=== PATIENT | female | born 1945 | race Caucasian/White ===

== ENCOUNTER 2024-10-03 18:27 | Inpatient (IN) | payer OTHER ==
[2024-10-03 19:56] LABS: Absolute Lymphocytes (CBC) 0.2 K/uL (0.7-4.9); Hematocrit 39.2 % (36.0-45.0); Hemoglobin 12.8 g/dL (12.0-15.0); MCH 29.0 pg (27.0-35.0); MCHC 32.6 g/dL (32.0-36.0); MCV 88.9 fL (80-100); MPV 7.2 fL (7.6-11.3); Nucleated RBC Absolute Count 0.0 (0-0); Nucleated Red Blood Cells % 0.2 % (0-0); RBC Red Blood Cell Count 4.41 M/uL (3.86-4.86); White Blood Count 3.50 thou/uL (4.3-10.9)
[2024-10-03 20:11] LABS: ALT/SGPT 26.0 U/L (13-56); AST/SGOT 32.0 U/L (15-37); Albumin 3.4 g/dL (3.4-5.0); Albumin/Globulin Ratio 0.8 (1.1-1.8); Alkaline Phosphatase 265.0 U/L (45-117); Anion Gap 11.9 mEq/L (5.0-15.0); BUN Blood Urea Nitrogen 75.0 mg/dL (7-18); Globulin 4.3 g/dL (2.3-3.5); Glucose Level 124.0 mg/dL (74-106); Lipase 32.0 U/L (13-75); Potassium 3.9 mEq/L (3.5-5.1)
--- NOTE | 2024-10-03 21:04 | RAD REPORT ---
EXAMINATION: CT ABDOMEN AND PELVIS WITHOUT CONTRAST CLINICAL INDICATION: Abdominal pain TECHNIQUE: CT abdomen and pelvis was performed, as per department protocol. IV contrast and oral was not administered.Axial, sagittal and coronal reconstructions were obtained. One or more of the following dose reduction techniques were used: Automated exposure control, adjustment of the mA and/o r kV according to the patient size, and/or iterative reconstruction. Unless otherwise specified, incidental findings do not require dedicated imaging follow-up. [id number]. COMPARISON: No prior exam. FINDINGS: The lack of intravenous and oral contrast limits evaluation of solid organs, vessels and bowel. 1.5 cm low-density area upper aspect of the spleen. Spleen measures 14 cm. Liver, pancreas, adrenals and left kidney grossly normal. Small right kidney. Large amount of stool present throughout the colon. No evidence of diverticulitis. Hysterectomy. No adnexal mass. Ventral hernia repair. A by femoral graft is present within the anterior subcutaneous fat of the pelvis. Right iliac stent p resent. Aorto biiliac stent. Diffuse edema within the subcutaneous tissues. No evidence of diverticulitis IMPRESSION: Large amount stool throughout the colon without obstruction Mild splenomegaly. 1.5 cm low-density area within the spleen. Represent a lesion or artifact. Nonemer gent splenic ultrasound recommended.
[2024-10-03] MEDS ORDERED: KETOROLAC 30 MG/ML INJ ONE (21:06)
[2024-10-03] MEDS ORDERED: LACTULOSE 20 GM/30 ML UCUP ONE (21:29)
--- NOTE | 2024-10-03 21:59 | EDPHYS ---
Physician Documentation [facility] Name: Flor Regan Age: 79 yrs Sex: Female : 1945 Arrival Date: 10/03/2024 Time: 18:27 Bed 16 Private MD: ED Physician Sherita Ramirez HPI: 10/03 18:53 This 79 yrs old Female presents to ER via Unassigned with complaints of Constipation. kb 18:53 Pt is a 79 year old female who presents for abd pain, low back pain and constipation kb that has been ongoing for one month. Pt was seen at [place] [facility] 3 times for this and was told she needed to follow up with GI. Pt was also told to take metamucil daily, but she hasn't been taking that so she hasn't been having bowel movements. Denies n/v, fever. . Historical: - Allergies: 18:59 Codeine; ap3 18:59 Latex, Natural Rubber; ap3 18:59 Adhesives; ap3 - PMHx: 18:59 Congestive heart failure; Atrial fibrillation; ap3 - PSHx: 18:59 pacemaker; ap3 - Immunization history:: Adult Immunizations up to date. - Infectious Disease History:: Denies. - Social history:: Smoking status: Patient reports the use of cigarette tobacco products, smokes one-half pack cigarettes per day. ROS: 18:56 Constitutional: As per HPI kb Exam: 18:56 Constitutional: This is a well developed, well nourished patient who is awake, alert, kb and in no acute distress. Head/Face: Normocephalic, atraumatic. ENT: Moist Mucous membranes Cardiovascular: Regular rate Respiratory: Respirations even and unlabored. No increased work of breathing. Talking in full sentences Skin: Warm, dry with normal turgor. Normal color. MS/ Extremity: Pulses equal, no cyanosis. Neurovascular intact. Full, normal range of motion. Neuro: Awake and alert, GCS 15, oriented to person, place, time, and situation. 18:56 Abdomen/GI: Inspection: distension, that is mild, in the right lower quadrant and left lower quadrant, Palpation: abdomen is soft and non-tender, 18:56 Back: CVA tenderness, that is moderate, is noted on the right, Vital Signs: 18:57 BP 135 / 54; Pulse 80; Resp 18; Temp 97.8; Pulse Ox 94% on R/A; Weight 58.06 kg; Height ap3 5 ft. 8 in. ; Pain 7/10; 19:30 BP 119 / 51; Pulse 79; Resp 18; Pulse Ox 100% ; kj2 20:30 BP 117 / 50; Pulse 76; Resp 18; Pulse Ox 100% on R/A; kj2 23:37 BP 118 / 52; Pulse 74; Resp 18; Temp 97.9; Pulse Ox 100% on R/A; kj2 18:57 Body Mass Index 19.46 (58.06 kg, 172.72 cm) ap3 18:57 Pain Scale: Adult ap3 MDM: 18:34 Medical Screening Exam initiated kb 21:56 Differential diagnosis: constipation, chronic pain, abnormal electrolytes, dehydration. kb Data reviewed: vital signs, nurses notes. Consideration of Admission/Observation Patient was admitted/placed on observation. Escalation of care including admission/observation considered. Management of patient was discussed with the following: Hospitalist: MICHELLE Guillermo accepts pt for admission under Dr Phillips. Historians other than the Patient: Family Member: Sister states pt lives alone, has been unable to care for herself, not eating and is losing weight. Request admission for social work professor consult for jail placement.. Counseling: I had a detailed discussion with the patient and/or guardian regarding the historical points, exam findings, and any diagnostic results supporting the discharge/admit diagnosis, lab results, radiology results, the need for further work-up and treatment in the hospital. 10/03 18:41 Order name: CBC with Diff; Complete Time: 22:18 kb 10/03 18:41 Order name: CMP; Complete Time: 20:13 kb 10/03 18:41 Order name: Lipase; Complete Time: 20:13 kb 10/03 18:41 Order name: UA Rfx Sonny Cult if indicated kb 10/03 22:14 Order name: CBC Smear Scan; Complete Time: 22:18 EDMS 10/03 23:27 Order name: CBC with Automated Diff EDMS 10/03 23:27 Order name: CBC with Automated Diff EDMS 10/03 23:27 Order name: CBC with Automated Diff EDMS 10/03 23:27 Order name: Comprehensive Metabolic Panel EDMS 10/03 23:27 Order name: Comprehensive Metabolic Panel EDOH 10/03 23:27 Order name: Comprehensive Metabolic Panel EDOH 10/03 20:29 Order name: Abdomen ; Complete Time: 21:05 EDOH 10/03 18:41 Order name: IV Saline Lock; Complete Time: 19:48 kb 10/03 18:41 Order name: Labs collected and sent; Complete Time: 19:48 kb Administered Medications: 21:16 Drug: Ketorolac IVP 15 mg IVP once Route: IVP; Site: left hand; kj2 23:34 Follow up: Response: No adverse reaction kj2 21:36 Drug: Lactulose PO 30 grams 45 ml PO once Volume: 45 ml; Route: PO; kj2 23:34 Follow up: Response: No adverse reaction kj2 Disposition Summary: 10/03/24 21:59 Hospitalization Ordered Notes: Hospitalization Status: Observation kb Provider: Prince christiano Gonzalez Location: Telemetry/MedSurg (observation) kb Condition: Stable kb Problem: new kb Symptoms: are unchanged kb Bed/Room Type: Standard Room Assignment: 407(10/03/24 23:29) rv1 Diagnosis - Weakness kb Forms: - Medication Reconciliation Form kb - SBAR form kb - Leadership Thank You Letter kb Signatures: Dispatcher [employer] EDKrystal Vivas, TRANSMITTER CHIEF-C TRANSMITTER CHIEF-Ckb Tyra Strong, RN RN ap3 Haley Del Cid rv1 Iwona Martin, RN RN kj2 Corrections: (The following items were deleted from the chart) 18:42 18:42 CBC+H.LAB.BRZ ordered. EDMS EDMS 18:42 18:42 COMPREHENSIVE METABOLIC PANEL+C.LAB.BRZ ordered. EDMS EDMS 18:42 18:42 LIPASE+C.LAB.BRZ ordered. EDMS EDMS 18:42 18:42 UA Rfx Sonny Cult if indicated+U.LAB.BRZ ordered. EDMS EDMS 18:42 18:42 Abdomen Pelvis W Con+CT.RAD.BRZ ordered. EDMS EDMS 19:00 18:59 Allergies: No Known Allergies; ap3 ap3 23:29 21:59 kb rv1
--- NOTE | 2024-10-03 21:59 | ER ---
Nurse's Notes [facility] Name: Flor Regan Age: 79 yrs Sex: Female : 1945 Arrival Date: 10/03/2024 Time: 18:27 Bed 16 Private MD: Diagnosis: Weakness Presentation: 10/03 18:57 Chief complaint: Patient states: she has a recent history of constipation, and is ap3 complaining of back pain and lower right abdominal pain. patient reports having minimal bowel movements daily. patient currently rates her pain as a 7/10 on the pain scale. Coronavirus screen: At this time, the client does not indicate any symptoms associated with coronavirus-19. Ebola Screen: No symptoms or risks identified at this time. Initial Sepsis Screen: Does the patient meet any 2 criteria? No. Patient's initial sepsis screen is negative. Does the patient have a suspected source of infection? No. Patient's initial sepsis screen is negative. Risk Assessment: Do you want to hurt yourself or someone else? Patient reports no desire to harm self or others. Onset of symptoms is unknown. 18:57 Method Of Arrival: Wheelchair ap3 18:57 Acuity: LILI 3 ap3 Triage Assessment: 19:01 General: Appears uncomfortable, Behavior is calm, cooperative, appropriate for age. ap3 Pain: Complains of pain in low back area and right lower quadrant. Neuro: Level of Consciousness is awake, alert, obeys commands, Oriented to person, place, time, situation. Cardiovascular: Patient's skin is warm and dry. Respiratory: Airway is patent Respiratory effort is even, unlabored, Respiratory pattern is regular, symmetrical. GI: Reports lower abdominal pain, constipation. Historical: - Allergies: 18:59 Codeine; ap3 18:59 Latex, Natural Rubber; ap3 18:59 Adhesives; ap3 - PMHx: 18:59 Congestive heart failure; Atrial fibrillation; ap3 - PSHx: 18:59 pacemaker; ap3 - Immunization history:: Adult Immunizations up to date. - Infectious Disease History:: Denies. - Social history:: Smoking status: Patient reports the use of cigarette tobacco products, smokes one-half pack cigarettes per day. Screenin:01 Abuse screen: Denies threats or abuse. Nutritional screening: No deficits noted. ap3 Tuberculosis screening: No symptoms or risk factors identified. 19:24 [facility] ED Fall Risk Assessment (Adult) History of falling in the last 3 months, kj2 including since admission No falls in past 3 months (0 pts) Confusion or Disorientation No (0 pts) Intoxicated or Sedated No (0 pts) Impaired Gait No (0 pts) Mobility Assist Device Used No (0 pt) Altered Elimination No (0 pt) Score/Fall Risk Level 0 - 2 = Low Risk Maintained a safe environment, Hourly rounding (assess needs \T\ fall precautionary measures) done. Assessment: 19:23 General: Appears in no apparent distress. Behavior is cooperative. Pain: Complains of kj2 pain in low back area and left lower quadrant and right lower quadrant Pain currently is 5 out of 10 on a pain scale. Neuro: Level of Consciousness is awake, alert, obeys commands, Oriented to person, place, time, situation. Cardiovascular: Patient's skin is warm and dry. Respiratory: Airway is patent Respiratory effort is unlabored. GI: No signs and/or symptoms were reported involving the gastrointestinal system. : No signs and/or symptoms were reported regarding the genitourinary system. 20:20 Reassessment: Patient appears in no apparent distress at this time. Patient and/or kj2 family updated on plan of care and expected duration. Pain level reassessed. Patient is alert, oriented x 3, equal unlabored respirations, skin warm/dry/pink. 20:20 Reassessment: patient refused catheter to obtain urine. kj2 20:20 Reassessment: patient refused catheter for urine sample, pure wick applied. kj2 21:20 Reassessment: Patient appears in no apparent distress at this time. Patient and/or kj2 family updated on plan of care and expected duration. Pain level reassessed. Patient is alert, oriented x 3, equal unlabored respirations, skin warm/dry/pink. 22:20 Reassessment: Patient appears in no apparent distress at this time. Patient and/or kj2 family updated on plan of care and expected duration. Pain level reassessed. Patient is alert, oriented x 3, equal unlabored respirations, skin warm/dry/pink. 23:30 Reassessment: Patient appears in no apparent distress at this time. Patient and/or kj2 family updated on plan of care and expected duration. Pain level reassessed. Patient is alert, oriented x 3, equal unlabored respirations, skin warm/dry/pink. Vital Signs: 18:57 BP 135 / 54; Pulse 80; Resp 18; Temp 97.8; Pulse Ox 94% on R/A; Weight 58.06 kg; Height ap3 5 ft. 8 in. ; Pain 7/10; 19:30 BP 119 / 51; Pulse 79; Resp 18; Pulse Ox 100% ; kj2 20:30 BP 117 / 50; Pulse 76; Resp 18; Pulse Ox 100% on R/A; kj2 23:37 BP 118 / 52; Pulse 74; Resp 18; Temp 97.9; Pulse Ox 100% on R/A; kj2 18:57 Body Mass Index 19.46 (58.06 kg, 172.72 cm) ap3 18:57 Pain Scale: Adult ap3 ED Course: 18:33 Patient arrived in ED. im 18:33 Krystal Bauman F[facility]-C [facility] kb 18:33 Sherita Ramirez MD is Attending Physician. kb 18:51 Radiology exam delayed due to lab results not completed at this time. (BUN/Creatinine) jc4 IV insertion attempt and/or patient not having appropriate IV at this time. 18:59 Triage completed. ap3 19:01 Arm band placed on left wrist. ap3 19:03 Iwona Martin, OCTAVIO is Primary Nurse. kj2 19:30 Patient has correct armband on for positive identification. Bed in low position. Call kj2 light in reach. Provided Education on: call light. 19:48 CBC with Diff Sent. hw 19:48 CMP Sent. hw 19:48 Lipase Sent. hw 19:48 Inserted saline lock: 22 gauge in left hand, using aseptic technique. Blood collected. br2 Flushed with 10 mL NS. 20:41 Abdomen In Process Unspecified. EDMS 21:58 Prince Gonzalez MD is Hospitalizing Provider. kb 10/04 00:05 Report given to OCTAVIO Rehman. kj2 Administered Medications: 10/03 21:16 Drug: Ketorolac IVP 15 mg IVP once Route: IVP; Site: left hand; kj2 23:34 Follow up: Response: No adverse reaction kj2 21:36 Drug: Lactulose PO 30 grams 45 ml PO once Volume: 45 ml; Route: PO; kj2 23:34 Follow up: Response: No adverse reaction kj2 Medication: 20:20 VIS not applicable for this client. kj2 Outcome: 21:59 Decision to Hospitalize by Provider. 10/04 00:43 Patient left the ED. kj2 Signatures: Dispatcher [employer] EDKrystal Vivas FNP-C FNP-Tyra Truong RN RN ap3 Evelia Lazcano Belinda RN RN br2 Juanjose Zendejas jc4 Iwona Martin RN RN kj2 Anna Méndez Corrections: (The following items were deleted from the chart) 10/03 19:00 18:59 Allergies: No Known Allergies; ap3 ap3
[2024-10-03 22:14] LABS: Blood Morphology Comment NOT SEEN (NOT SEEN); White Blood Cell Scan OK (OK)
--- NOTE | 2024-10-03 23:31 | P.HP ---
Certification for Inpatient Patient admitted to: Observation With expected LOS: <2 Midnights Patient will require the following post-hospital care: None Practitioner: I am a practitioner with admitting privileges, knowledge of patient current condition, hospital course, and medical plan of care. 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 Patient states prior to arrival at [facility] ER today, she went to [facility] in the morning complaining of right-sided back pain, lower abdominal pain, states she was evaluated treated and discharged home with prescription of tramadol and muscle relaxant. Patient states she went home and took the medications as prescribed but still had abdominal pain and right side lower back pain, which then prompted her to report to the ER. Patient had CT abdomen and pelvis without contrast done in ER, impression; (1) large amount stool throughout the colon without obstruction. Patient bowel sounds present all 4 quadrants, abdomen slightly distended, soft on palpation, no rebound tenderness. No sign of respiratory distress. Patient states she started having muscle spasm for the past 4 weeks with associated back pain, and abdominal pain, with no nausea or vomiting. She also states that her bilateral lower extremities edema is progressively worsening, and on admission assessment, patient bilateral lower extremities with 1+ pitting. Patient states she have made multiple visits to [facility] ER with abdominal pain and back pain, but always discharged home from the ER. Patient BUN 75, creatinine 1.74. Patient denies of any history of renal disease. No presenting signs or symptoms of CHF exacerbation at this time. - Past Medical/Surgical History Diabetic: No -: Hypercholesteremia. -: Essential hypertension. -: Muscle spasm. -: Abdominal pain. -: Pacemaker insertion. -: Leaky valve clip. -: Colonoscopy. -: Endoscopy. -: Left femoral bypass surgery. - Family History Mother -: Heart disease Brother -: Diabetes, Other (see notes) (Asthma, COPD.) Sister -: Cancer (Breast cancer.) - Social History Smoking Status: Current every day smoker Smoking therapy provided: Yes Patient receptive to therapy: No Alcohol use: No CD- Drugs: No Caffeine use: Yes Place of Residence: Custodial (Patient will benefit long-term care. Patient currently lives alone.) <EagleJuan - Last Filed: 10/05/24 02:38> Date of Service: 10/03/24 <Hilda Leiva - Last Filed: 10/05/24 09:35> Allergies codeine [Codeine] Allergy (Intermediate, Verified 09/14/11 00:55) [facility] Home Medications: Clopidogrel Bisulfate [Plavix] 75 mg PO DAILY 09/14/11 Cyclobenzaprine [Flexeril*] 10 mg PO Q6HP PRN 09/14/11 Enalapril Maleate 5 mg PO DAILY 09/14/11 Metoprolol Succinate 100 mg PO DAILY 09/14/11 Simvastatin 40 mg PO BEDTIME 09/14/11 Review of Systems 10-point ROS is otherwise unremarkable Gastrointestinal: Abdominal Pain Musculoskeletal: Back Pain <EagleJuan - Last Filed: 10/05/24 02:38> Physical Examination - Physical Exam General: Alert, Oriented x3, Cooperative HEENT: Atraumatic, Normocephalic, PERRLA, Mucous membr. moist/pink, Sclerae nonicteric Neck: Supple, 2+ carotid pulse no bruit, No LAD, Without JVD or thyroid abnormality Respiratory: Normal air movement, Other (No major adventitious breath sounds noted bilateral) Cardiovascular: No gallops, No rubs, No murmurs, Irregular heart rate/rhythm (Patient heart rate is regular to irregular.) Capillary refill: <2 Seconds Gastrointestinal: W/out hepatomegaly, No masses, No rebound, Tenderness, Guarding Musculoskeletal: No clubbing, No contractures, No warmth, Swelling (Bilateral lower extremities.), Tenderness (Bilateral lower extremities.) Integumentary: No breakdown, No erythema, No warmth, No cyanosis Neurological: Normal speech, Normal tone, Normal affect, Other (Unable to assess patient gait at this time she is in bed) Lymphatics: No axilla or inguinal lymphadenopathy - Studies Laboratory Data (last 24 hrs) 10/03/24 10/03/24 19:46 19:46 WBC 3.50 L Hgb 12.8 Hct 39.2 Plt Count 165 Sodium 134 L Potassium 3.9 BUN 75 H Creatinine 1.74 H Glucose 124 H Total Bilirubin 1.0 AST 32 ALT 26 Alkaline Phosphatase 265 H Lipase 32 <Juan Guillermo - Last Filed: 10/05/24 02:38> Female Exam - Breasts Breasts: Normal configuration <Juan Guillermo - Last Filed: 10/05/24 02:38> Assessment and Plan - Plan Patient is a 79-year-old female admitted with diagnosis of WILLIAMS, constipation, generalized body weakness with no associated chest pain, shortness of breath, positive 1+ pitting edema bilateral lower extremities. (1)Constipation. Patient CT abdomen/pelvis impression-large amount stool throughout the colon without obstruction. Patient received lactulose in with no positive results. -Order fleets enema x 2. First given on admission, second repeat after patient did not have adequate bowel movement. -Dulcolax suppository x 1. Patient laxatives needs to be optimized for positive results due to the profound nature of patient constipation.. -Fleets enema as needed. -Colace 100 mg p.o. twice daily. -Morphine 2 mg IV as needed every 6 hours. (2)WILLIAMS. Patient BUN 75, creatinine 1.74. Denies of any prior history of renal disease. -IV NS at 50 mL/ hr slow infusion due to patient history of CHF even though patient does not have any presenting symptoms CHF exacerbation. -Consult nephrology Dr. Vicente. -Daily weight and record. (3)DVT prophylaxis. -Heparin 5 units SQ every 8 hours. (3)Explained the entire treatment plan to the patient, solicit questions answered and voiced understanding. (4)Muscle spasm. -Flexeril 10 mg as needed twice daily. (5)Chronic CHF. No CHF exacerbation noted at this time. -Resume patient medications when reconciled. Discharge Plan: Other (Long-term care facility. Patient is okay for short-term long-term care facility placement) Plan to discharge in: Greater than 2 days - Advance Directives Does patient have a Living Will: No Does patient have a Durable POA for Healthcare: No - Code Status/Comfort Care Code Status Assessed: Yes Code Status: Full Code Critical Care: No Time Spent Managing Pts Care (In Minutes): 55 <EagleJuan - Last Filed: 10/05/24 02:38> - Problems (Diagnosis) (1) CKD (chronic kidney disease) stage 3, GFR 30-59 ml/min Current Visit: Yes Status: Acute (2) Atherosclerotic vascular disease Current Visit: Yes Status: Acute (3) Status post femorofemoral bypass surgery Current Visit: Yes Status: Acute (4) Cirrhosis Current Visit: Yes Status: Acute <Hilda Leiva - Last Filed: 10/05/24 09:35> Date of Service: 10/03/24 Patient was seen and examined. Events of the last 24 hours have been noted. Spoke with with ANTONIA regarding patient's clinical picture after evaluating and examining the patient independently. I performed a substantial part of the MDM during this patient's care today. I personally made or approved the documented management plan and acknowledge its risk of complications. I agree with the findings and documentation provided in the ANTONIA's notes. Patient's clinical symptoms are concerning for numerous medical issues including dilated cardiomyopathy with an EF of 35 to 40% along with a history of atherosclerotic vascular disease with peripheral arterial disease and coronary artery disease. Patient also with decreased vision and unable to really see for herself in a patient with chronic kidney disease stage IV. Patient will be gently hydrated and will monitor renal function closely. Do not want a volume overload patient so we will gently hydrate. Appreciate cardiology and nephrology consultation. Working on [place] [facility] facility placement. <Hilda Leiva - Last Filed: 10/05/24 09:35>
[2024-10-04] MEDS: HEPARIN 5000 UNIT/ML 1 ML VIAL SQ SCH (01:00)
[2024-10-04] MEDS: MORPHINE 2 MG/ML SYR IV PRN (01:00)
[2024-10-04] MEDS: ONDANSETRON 4 MG/2 ML VIAL IV PRN (01:15)
[2024-10-04] MEDS: MINERAL OIL ENEMA 135 ML BTL PR ONE (02:39)
[2024-10-04] MEDS: NA CHLORIDE 0.9% 1,000 ML IV SCH (02:39)
[2024-10-04 02:59] LABS: Urine Microscopic Reflex YN NO UMIC
[2024-10-04] MEDS: FENTANYL CITR 100 MCG/2 ML ONE (05:25)
[2024-10-04 06:06] LABS: Absolute Lymphocytes (CBC) 0.3 K/uL (0.7-4.9); Hematocrit 35.5 % (36.0-45.0); Hemoglobin 11.5 g/dL (12.0-15.0); MCH 29.2 pg (27.0-35.0); MCHC 32.5 g/dL (32.0-36.0); MCV 89.8 fL (80-100); MPV 7.5 fL (7.6-11.3); Nucleated RBC Absolute Count 0.0 (0-0); Nucleated Red Blood Cells % 0.0 % (0-0); RBC Red Blood Cell Count 3.95 M/uL (3.86-4.86); White Blood Count 7.30 thou/uL (4.3-10.9)
[2024-10-04 06:23] LABS: ALT/SGPT 23.0 U/L (13-56); AST/SGOT 28.0 U/L (15-37); Albumin 2.9 g/dL (3.4-5.0); Albumin/Globulin Ratio 0.8 (1.1-1.8); Alkaline Phosphatase 231.0 U/L (45-117); Anion Gap 8.8 mEq/L (5.0-15.0); BUN Blood Urea Nitrogen 79.0 mg/dL (7-18); Globulin 3.5 g/dL (2.3-3.5); Glucose Level 137.0 mg/dL (74-106); Potassium 3.8 mEq/L (3.5-5.1)
[2024-10-04] MEDS: BISACODYL 10 MG RECTAL SUPP PR ONE (06:45)
[2024-10-04] MEDS: DOCUSATE NA 100 MG CAP PO SCH (08:06)
--- NOTE | 2024-10-04 09:57 | P.CNS ---
Date of Consult: 10/04/24 Reason for Consult: WILLIAMS/ CKD Requesting Physician: Hilda Leiva Chief Complaint: Constipation History of Present Illness: 10/03 18:53 This 79 yrs old Female presents to ER via Unassigned with complaints of Constipation. kb 18:53 Pt is a 79 year old female who presents for abd pain, low back pain and constipation kb that has been ongoing for one month. Pt was seen at [facility] 3 times for this and was told she needed to follow up with GI. Pt was also told to take metamucil daily, but she hasn't been taking that so she hasn't been having bowel movements. Denies n/v, fever. . Allergies codeine [Codeine] Allergy (Intermediate, Verified 09/14/11 00:55) Hives Home medications list reviewed: Yes Home Medications: Clopidogrel Bisulfate [Plavix] 75 mg PO DAILY 09/14/11 Cyclobenzaprine [Flexeril*] 10 mg PO Q6HP PRN 09/14/11 Enalapril Maleate 5 mg PO DAILY 09/14/11 Metoprolol Succinate 100 mg PO DAILY 09/14/11 Simvastatin 40 mg PO BEDTIME 09/14/11 - Past Medical/Surgical History -: HTN -: HLD - Family History Mother Medical History: Heart disease Brother Medical History: Diabetes, Other (see notes) (Asthma, COPD.) Sister Medical History: Cancer (Breast cancer.) - Social History Smoking Status: Former smoker Alcohol use: Yes CD- Drugs: No Caffeine use: Yes Review of Systems 10-point ROS is otherwise unremarkable Cardiovascular: Edema Gastrointestinal: Constipation Musculoskeletal: Back Pain Physical Examination General: In no apparent distress, Oriented x3, Cooperative HEENT: Atraumatic Neck: Supple Respiratory: Clear to auscultation bilaterally, Normal air movement Cardiovascular: Regular rate/rhythm, Edema Gastrointestinal: No guarding, Distended Musculoskeletal: No clubbing, No contractures Integumentary: No rashes, No cyanosis Neurological: Normal speech Laboratory Data (last 24 hrs) 10/03/24 10/03/24 19:46 19:46 WBC 3.50 L Hgb 12.8 Hct 39.2 Plt Count 165 Sodium 134 L Potassium 3.9 BUN 75 H Creatinine 1.74 H Glucose 124 H Total Bilirubin 1.0 AST 32 ALT 26 Alkaline Phosphatase 265 H Lipase 32 Imagings Data: EXAMINATION: CT ABDOMEN AND PELVIS WITHOUT CONTRAST CLINICAL INDICATION: Abdominal pain TECHNIQUE: CT abdomen and pelvis was performed, as per department protocol. IV contrast and oral was not administered.Axial, sagittal and coronal reconstructions were obtained. One or more of the following dose reduction techniques were used: Automated exposure control, adjustment of the mA and/or kV according to the patient size, and/or iterative reconstruction. Unless otherwise specified, incidental findings do not require dedicated imaging follow-up. [id number]. COMPARISON: No prior exam. FINDINGS: The lack of intravenous and oral contrast limits evaluation of solid organs, vessels and bowel. 1.5 cm low-density area upper aspect of the spleen. Spleen measures 14 cm. Liver, pancreas, adrenals and left kidney grossly normal. Small right kidney. Large amount of stool present throughout the colon. No evidence of diverticulitis. Hysterectomy. No adnexal mass. Ventral hernia repair. A by femoral graft is present within the anterior subcutaneous fat of the pelvis. Right iliac stent present. Aorto biiliac stent. Diffuse edema within the subcutaneous tissues. No evidence of diverticulitis IMPRESSION: Large amount stool throughout the colon without obstruction Mild splenomegaly. 1.5 cm low-density area within the spleen. Represent a lesion or artifact. Nonemergent splenic ultrasound recommended. Conclusions/Impression: Stage I WILLIAMS likely multifactorial CKD IIIb -No NSAIDs Hyponatremia -Consider fluid restriction HTN with CKD/ CHF -Hold antihypertensives at this time Systolic Diastolic CHF, chronic Moderate Pulmonary HTN Moderate MR -Low sodium diet -DC IVF Anemia in chronic illness -Monitor H&H Gout -Monitor Uric Acid Slow Transit Constipation -Continue Colace -Mineral Oil Enema Hospitalist and ER notes reviewed Thank you kindly for the consultation Case reviewed with Dr. Leiva
--- NOTE | 2024-10-04 10:06 | P.PN ---
Subjective Date of Service: 10/04/24 Patient continues to have pain control. Patient's myalgia and worsening renal function. Patient unable to see. Patient's prognosis is not that day. Patient renal function is worsening. Patient cardiac functioning shows ejection fraction of 30 to 35%. Records from outside hospital and chart. At this time patient will continue with gentle hydration and physical therapy evaluation. Patient will need senior care facility placement. Review of Systems 10-point ROS is otherwise unremarkable Physical Examination - Vital Signs Temperature: 98 F Blood Pressure: 120/70 Pulse: 90 Respirations: 18 Pulse Ox (%): 95 - Physical Exam General: Alert, In no apparent distress, Oriented x3 HEENT: Atraumatic, PERRLA, EOMI Neck: Supple, JVD not distended Respiratory: Clear to auscultation bilaterally, Normal air movement Cardiovascular: Regular rate/rhythm, Normal S1 S2, No murmurs Gastrointestinal: Normal bowel sounds, Soft and benign, Non-distended, No tenderness Musculoskeletal: No clubbing, No swelling, No tenderness Integumentary: No rashes Neurological: Sensation intact, Cranial nerves 3-12 intact Lymphatics: No axilla or inguinal lymphadenopathy - Studies Laboratory Data (last 24 hrs) 10/03/24 10/03/24 19:46 19:46 WBC 3.50 L Hgb 12.8 Hct 39.2 Plt Count 165 Sodium 134 L Potassium 3.9 BUN 75 H Creatinine 1.74 H Glucose 124 H Total Bilirubin 1.0 AST 32 ALT 26 Alkaline Phosphatase 265 H Lipase 32 Medications List Reviewed: Yes Assessment & Plan - Problems (Diagnosis) (1) CKD (chronic kidney disease) stage 3, GFR 30-59 ml/min Current Visit: Yes Status: Acute (2) Atherosclerotic vascular disease Current Visit: Yes Status: Acute (3) Status post femorofemoral bypass surgery Current Visit: Yes Status: Acute (4) Cirrhosis Current Visit: Yes Status: Acute - Plan Plan: 1. Patient with generalized weakness and shortness of breath with acute CHF exacerbation; continue with gentle gently diuresing and monitor renal function closely. Patient with chronic kidney disease stage III and will need to make sure patient does not progress. Patient with a history of cirrhosis as well. Patient with multiple comorbidities and patient unable to see. She lives at home by herself but she is not safe to live at home by herself at this time. She is not able to really get out of bed well and will go to get physical therapy to start working with her. Will try to get senior care facility placement. Patient will be admitted for inpatient hospitalization. Discharge Plan: [facility] Plan to discharge in: Greater than 2 days - Advance Directives Does patient have a Living Will: No Does patient have a Durable POA for Healthcare: No - Code Status/Comfort Care Code Status Assessed: Yes Code Status: Full Code Critical Care: No Time Spent Managing PTS Care (In Minutes): 45 Date of Service: 10/04/24 Narrative & Impression DOS: 10/01/24 EXAM: CT LUMBAR SPINE WO CONTRAST HISTORY: Low back pain ongoing for 3 weeks. TECHNIQUE: Routine unenhanced CT of the lumbar spine was performed. Coronal and sagittal reformats were obtained. COMPARISON: X-ray lumbar spine 05/02/2022; CT abdomen pelvis 09/07/2024 FINDINGS: There are 5 non-rib bearing lumbar vertebrae. Mild dextrocurvature is noted. Normal lumbar lordosis is preserved. The vertebral bodies are normal in height and in normal alignment. No acute fracture or traumatic dislocation is visualized. Mild multilevel degenerative changes noted. Disc bulge noted at L3-L4, L4-L5, and most prominently at L5-S1. Perineural nerve sheath cyst is noted at L5-S1 on the left. Mild multilevel disc space narrowing, osteophyte formation and facet arthrosis. The visualized sacrum and pelvic bones are intact. Diffuse osteopenia is present. Partially visualized splenic hypodensity, better evaluated on recent CT abdomen pelvis dated 09/07/2024. Cholelithiasis. Atrophic right kidney. Postsurgical changes of the abdominal aorta with partially visualized right external iliac artery stent. IMPRESSION No acute fracture or traumatic subluxation of the lumbar spine. Osteopenia. Preliminary Report Dictated by Resident: Lily Quezada MD., have reviewed this study and agree with the above report. Narrative & Impression EXAM: CT ABDOMEN/PELVIS WITH CONTRAST HISTORY: Abdominal pain, acute, nonlocalized COMPARISON: CT scan dated 09/02/2024. TECHNIQUE AND FINDINGS: Contiguous axial imaging from the level of the lung bases through the proximal thighs was performed after the administration of intravenous Omnipaque contrast. Coronal and sagittal reconstructions were obtained. Auto mA and/or iterative reconstruction were used to reduce radiation dose. FINDINGS: LOWER THORAX: Mild bilateral pleural effusion with underlying atelectasis LIVER: No focal hepatic lesions. Normal contour. Minimal perihepatic free fluid. Mild fatty infiltration of the liver. There are multiple perisplenic, perigastric, gastric wall and peripancreatic varices of GALLBLADDER AND BILIARY TREE: Cholelithiasis without evidence of acute cholecystitis. SPLEEN: Moderate splenomegaly, measuring 163 mm. A hypodense focus is identified in spleen, measuring 17 x 20 mm, likely cyst. PANCREAS: Pancreas appears atrophic. ADRENAL GLANDS: Redemonstration of bulky nodular appearing left adrenal gland. Normal right adrenal gland. Redemonstration of a nodule measuring 8 x 7 mm in the left adrenal gland. KIDNEYS: Redemonstration of atrophic right kidney with multiple renal cortical cysts. A complex cyst at lower pole of right kidney measures 7 x 8 mm. Normal left kidney. GI TRACT: No dilation or wall thickening. Colonic diverticulosis without acute diverticulitis. Redemonstration of asymmetric thickening at anorectal region. PELVIS/BLADDER: Unremarkable. PERITONEUM AND RETROPERITONEUM: No free air or fluid. LYMPH NODES: No lymphadenopathy. VESSELS: There is redemonstration of atherosclerotic calcification of the abdominal aorta and its branches. Redemonstration of occlusion of the nikolai iliac arteries. A patent bypass graft is on the left, with an occluded stent on the right. The patent left-sided graft supplies a patent femoral-femoral bypass graft. BONES AND SOFT TISSUES: No suspicious lytic or sclerotic bony lesions. Redemonstration of anterior abdominal wall mesh. Diffuse body wall edema is noted. IMPRESSION 1. Mild fatty infiltration of liver with moderate splenomegaly with associated perigastric and peripancreatic varices and mild perihepatic fluid. Cholelithiasis. 2. Redemonstration of atrophic right kidney with multiple cysts and small complex cyst. Unchanged asymmetric anorectal wall thickening and diverticulosis without acute diverticulitis. 3. Patent left-sided and femoral-femoral bypass grafts; occluded nikolai iliac arteries and right stent, unchanged. Four-chamber cardiac dilatation. Interstitial pulmonary edema. Small bilateral pleural effusions. Preliminary Report Dictated by Resident: Jhoan Biswas MD., have reviewed this study and agree with the above report. Exam Ended:04/12/24 Procedure Performed: PHILLIP with Abott's mitral clip, XAVIER,Trans septal puncture, Physicians: and ,this was performed by both physicians General anesthesia was provided by Anesthesia team.Christiano Templeton XAVIER was performed by Dr.Shuja Adkins After induction of general anesthesia by Anesthesia team and XAVIER evaluation of mitral valve by our noninvasive team we obtained 8F access on the right side. A pre close was performed for the right groin access. Next, we performed transeptal puncture using Andrei Vers[place] Cross under fluoroscopic and XAVIER guidance and sheath was placed in the left upper pulmonary vein. We gave heparin and kept the ACT close to 300 sec. Next, we exchanged the trans-septal sheath with Moe's 22 Fr sheath and placed in the left atrium. Next , we passed Clip catheter trough the sheath into the left atrium.The transseptal puncture and inserted the delivery catheter by . Next under fluroscopic and XAVIER guidance the clip was positioned above the valve and next into the LV below the leaflets. Next the clip in opened position was moved up and rotated to grasp the leaflets. Intial grasp lead to the shift of MR laterally with mitral gradient of 8 mm Hg. Hence we decided to let go and repositioned the clip and grasp. After moving the clip laterally and with the road production general manager the mitral jet got better and hence we decided to let go. MR reduced but still was moderate .Since the mitral gradient was high we decided not to put the second clip. The clip was successfully deployed. The V wave was 54 and reduced to 39 after clip. Mean left atrial pressure reduced from 29 to 27 mm Hg. Mitral valve gradient increased from 4 to 7 mm Hg. Next The access sheath was removed and preclose suture was closed and hemostasis was obtained. Final XAVIER showed device insitu and no pericardial effusion. Next, patient was extubated and transferred to recovery in stable condition. Impression Successful PHILLIP using Abotts XTW mitral clip Plans Start Eliquis from tomorrow Ancef 1gm tonight and tomorrow morning C/w Other meds including diuretics Germán Martines MD, [facility] eastern philosophy professor cook specialty 06/21/24 Left Ventricle Left ventricle is mildly dilated. Moderate global hypokinesis present. Moderately reduced systolic function with a visually estimated EF of 35 - 40%. Unable to assess diastolic function due to mitral valve disease. Right Ventricle Right ventricle is mildly dilated. Normal systolic function. There is a pacemaker lead in the right ventricle. Left Atrium Left atrium is severely dilated. Right Atrium Right atrium size is normal. Lead present in the right atrium. IVC/SVC IVC diameter is greater than 21 mm and decreases less than 50% during inspiration; therefore the estimated right atrial pressure is elevated (~15 mmHg). Mitral Valve S/p Mitral clip Difficult to assess MR severity but probably moderate. Mean mitral valve gradient is 9.7 mmHG at heart rate 80 bpm. Consider XAVIER or CMR for accurate assessment of MR severity if clinically indicated. Tricuspid Valve Tricuspid valve structure is normal. Mild transvalvular regurgitation. Reversed hepatic vein systolic flow. Right ventricular systolic pressure is 55-60 mmHg. No stenosis. Aortic Valve Tricuspid. Moderately thickened cusps. Moderately calcified cusps. Trace transvalvular regurgitation. Consistent with moderate aortic stenosis. AV mean gradient is 12.2 mmHg. AV peak velocity is 234.5 cm/s. AV area by continuity VTI is 1.0 cm2. LVOT 2.0 cm. SVI 35 ml/m2. Pulmonic Valve Valve structure is normal. Mild transvalvular regurgitation. No stenosis. Ascending Aorta Normal sized annulus and sinus of Valsalva. Pericardium No pericardial effusion. Interpretation Summary LeftVentricle: Left ventricle is mildly dilated. Moderate global hypokinesis present. Moderately reduced systolic function with a visually estimated EF of 35 - 40%. Unable to assess diastolic function due to mitral valve disease. RightVentricle: Right ventricle is mildly dilated. Normal systolic function. TricuspidValve: Mild transvalvular regurgitation. Reversed hepatic vein s ystolic flow. Right ventricular systolic pressure is 55-60 mmHg. LeftAtrium: Left atrium is severely dilated. AorticValve: Tricuspid. Moderately thickened cusps. Moderately calcified cusps. Trace transvalvular regurgitation. Consistent with moderate aortic stenosis. AV mean gradient is 12.2 mmHg. AV peak velocity is 234.5 cm/s. AV area by continuity VTI is 1.0 cm2. LVOT 2.0 cm. SVI 35 ml/m2. MitralValve: S/p Mitral clip Difficult to assess MR severity but probably moderate. Mean mitral valve gradient is 9.7 mmHG at heart rate 80 bpm. Consider XAVIER or CMR for accurate assessment of MR severity if clinically indicated. IVC/SVC: IVC diameter is greater than 21 mm and decreases less than 50% during inspiration; therefore the estimated right atrial pressure is elevated (~15 mmHg). Pepper Hi MD Addendum Expand AllCollapse All Consultation requested by: IM/Hospitalist, Dr. 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 HF meds/adjusted during hospitalization since she failed OP loop diuretic escalation and she tolerated changes well but had been clearly counseled on the need for close OP monitoring but when my office staff called her within a week of discharge, pt wanted to hold off on f/u until seeing PCP and it appears no labs were checked until earlier today and given multiple abnormal findings, she was referred to the ER. She has been hypotensive since admission but largely asymptomatic. PAST MEDICAL HISTORY Past Medical History Past Medical History: Diagnosis Date ? Allergic rhinitis ? Atrial fibrillation ? Carotid artery disease s/p stent ? Gout, unspecified ? Hypercholesterolemia ? Hypertension ? Macular degeneration of both eyes ? PVD (peripheral vascular disease) s/p femoral stents ? Stroke ? Transfusion history Past Surgical History Past Surgical History: Procedure Laterality Date ? ANGIOPLASTY Right 04/04/2019 Surgeon: Jimmy Squires Jr., MD; Location: [facility] Location ? ARTERIOGRAM Right 04/04/2019 Surgeon: Jimmy Squires Jr., MD; Location: [facility] ? ARTERIOGRAM Right 04/06/2019 Surgeon: Jimmy Squires Jr., MD; Location: [facility] ? CREATION BYPASS GRAFT FEMORAL ARTERY (SHX) Right 04/06/2019 Surgeon: Jimmy Squires Jr., MD; Location[facility] Location ? ESOPHAGOGASTRODUODENOSCOPY N/A 01/17/2024 Surgeon: Divine Hernandez MD; Location[facility] ? EXPLORATION VESSEL LOWER EXTREMITY (SHX) Right 04/06/2019 Surgeon: Jimmy Squires Jr., MD; Location: [facility] Location ? FEMORAL-FEMORAL BYPASS GRAFT Bilateral 08/15/2022 Surgeon: Basilio Mari MD; Location: [facility] ? HYSTERECTOMY partial hysterectomy ? OPEN REDUCTION PERCUTANEOUS PINNING Left 08/09/2015 Surgeon: Joon Law; Location: [facility] Location ? OTHER carotid stent and ?stents for pad ? RADIUS ORIF Right 08/09/2015 Surgeon: Joon Law; Location: [facility] Location ? SPLINT APPLICATION Right 08/09/2015 Surgeon: Joon Law; Location: [facility] Location ? VASCULAR STENTING Right 04/04/2019 Surgeon: Jimmy Squires Jr., MD; Location: [facility] Location Family Hx Family History Problem Relation Age of Onset ? Heart Mother ? Hypertension Mother ? Diabetes Father ? Breast Cancer Sister ? Asthma Sister ? Cancer Sister ? Thyroid Cancer Maternal Aunt ? Non-contributory Other Allergies: Adhesive, Codeine, and Latex MEDICATIONS Current Medications Current Facility-Administered Medications: ? Lidocaine (LIDOCARE) 4 % patch 1 Patch, 1 Patch, Topical, ONCE, Nidia Mccarthy MD, 1 Patch at 06/20/24 1546 ? midodrine (PROAMATINE) tablet 10 mg, 10 mg, Oral, TID, Bob Hamm MD ? midodrine (PROAMATINE) tablet 5 mg, 5 mg, Oral, ONCE, Bob Hamm MD ? NaCl 0.9% (NS) bolus infusion 250 mL, 250 mL, IV Piggyback, ONCE, Rory Shepherd MD ? NaCl 0.9% (NS) IV infusion 1,000 mL, 1,000 mL, IV Infusion, CONTINUOUS, Rory Shepherd MD SOCIAL HISTORY Tobacco Use History Social History Tobacco Use Smoking Status Former ? Types: Cigarettes ? Passive exposure: Past Smokeless Tobacco Former Tobacco Comments patient smokes about 5 cig when she does smoke Social History Substance and Sexual Activity Alcohol Use Not Currently Comment: rarely Social History Substance and Sexual Activity Drug Use Not Currently REVIEW OF SYSTEMS ROS: Constitutional: No fevers or chills reported Vision: Vision impairment ENT: No sinusitis or dysphagia reported Resp: Dyspnea, O2 requirements CVS: As mentioned above GI: No N/V/D : Abnormal UA Heme: Anemia noted, chronic, other cytopenias Endo: No DM or thyroid issues reported Neuro: No hx of CVA or seizures Psych: No reports of depression or anxiety Derm: No reports of rashes or ulcers PHYSICAL EXAMINATION Vitals: 06/20/24 1709 BP: (!) 81/34 Pulse: 80 Resp: 20 Temp: SpO2: 99% Gen: NAD, non tachypnec, thin/frail HEENT: Atraumatic, sclera anicteric, visual impairment Neck: Supple, Resp: b/l air entry, no rales CVS: Non tachy, cardiac murmur GI: Soft, NT : ortiz not present Ext: No LE edema noted, shins non tender Derm: No rashes Neuro: Awake, alert, responsive, non encephalopathic, non focal LABORATORY Reviewed in the EMR CHART REVIEW: Performed ASSESSMENT and PLAN 1. Stage III ARF episode (Cr level nearly 3 folds higher than last check in May), latest after prior recurrent Stage I WILLIAMS episodes in past months on underlying CKD NOS now currently due to hypovolemia and hypotension in the setting of her HF regimen and prev felt to be 2nd to Type 1 CRS in the setting of her cardiomyopathy and valvular heart disease +/- other. Solitary kidney state with prior renal imaging revealing some Rt renal atrophy 2. Hypotension 2nd to hypovolemia and meds, asymptomatic, s/p 1L IVF bolus, order additional [address] on NS 50 cc IVF. Hold all BP lowering agents 3. Severe azotemia in the setting of above without uremia, will cont to trend closely with hydration. Cont IVF, no emergent plans for LOFT PATTERNMAKER currently 4. Hyperkalemia in the setting of above -initial OP lab check must have had some hemolysis as repeat level in the ER lower, recheck level sent off, cont IVF for distal tubular Na deliver and K excretion 5. Acute on chronic hyponatremia with hypovolemic component currently -cont isotonic IVF, holding all diuretics 6. Chronic combined systolic + diastolic CHF, mod pulm HTN, MR (non rheumatic), complicated history, hx of recurrent admissions and fluid overload in early May which prompted attempts to place her on GDMT and she demonstrated good response to regimen prior to discharge but unfortunately pt did not f/u in clinic with us. Will have to re-assess HF regimen with Cardiology team on discharge Rory Shepherd MD, FASN Study quality experienced technical difficulty. A complete echocardiogram was performed using 2D, color flow Doppler and spectral Doppler. 3 mL of Optison ultrasound enhancing agent used. Findings Left Ventricle Left ventricle is mildly dilated. Moderate global hypokinesis present. Moderately reduced systolic function with a visually estimated EF of 35 - 40%. Unable to assess diastolic function due to mitral valve disease. Right Ventricle Right ventricle is mildly dilated. Normal systolic function. There is a pacemaker lead in the right ventricle. Left Atrium Left atrium is severely dilated. Right Atrium Right atrium size is normal. Lead present in the right atrium. IVC/SVC IVC diameter is greater than 21 mm and decreases less than 50% during inspiration; therefore the estimated right atrial pressure is elevated (~15 mmHg). Mitral Valve S/p Mitral clip Difficult to assess MR severity but probably moderate. Mean mitral valve gradient is 9.7 mmHG at heart rate 80 bpm. Consider XAVIER or CMR for accurate assessment of MR severity if clinically indicated. Tricuspid Valve Tricuspid valve structure is normal. Mild transvalvular regurgitation. Reversed hepatic vein systolic flow. Right ventricular systolic pressure is 55-60 mmHg. No stenosis. Aortic Valve Tricuspid. Moderately thickened cusps. Moderately calcified cusps. Trace transvalvular regurgitation. Consistent with moderate aortic stenosis. AV mean gradient is 12.2 mmHg. AV peak velocity is 234.5 cm/s. AV area by continuity VTI is 1.0 cm2. LVOT 2.0 cm. SVI 35 ml/m2. Pulmonic Valve Valve structure is normal. Mild transvalvular regurgitation. No stenosis. Ascending Aorta Normal sized annulus and sinus of Valsalva. Pericardium No pericardial effusion. Interpretation Summary ? LeftVentricle: Left ventricle is mildly dilated. Moderate global hypokinesis present. Moderately reduced systolic function with a visually estimated EF of 35 - 40%. Unable to assess diastolic function due to mitral valve disease. ? RightVentricle: Right ventricle is mildly dilated. Normal systolic function. ? TricuspidValve: Mild transvalvular regurgitation. Reversed hepatic vein systolic flow. Right ventricular systolic pressure is 55-60 mmHg. ? LeftAtrium: Left atrium is severely dilated. ? AorticValve: Tricuspid. Moderately thickened cusps. Moderately calcified cusps. Trace transvalvular regurgitation. Consistent with moderate aortic stenosis. AV mean gradient is 12.2 mmHg. AV peak velocity is 234.5 cm/s. AV area by continuity VTI is 1.0 cm2. LVOT 2.0 cm. SVI 35 ml/m2. ? MitralValve: S/p Mitral clip Difficult to assess MR severity but probably moderate. Mean mitral valve gradient is 9.7 mmHG at heart rate 80 bpm. Consider XAVIER or CMR for accurate assessment of MR severity if clinically indicated. ? IVC/SVC: IVC diameter is greater than 21 mm and decreases less than 50% during inspiration; therefore the estimated right atrial pressure is elevated (~15 mmHg). Pepper Hi MD 06/21/24
[2024-10-04] MEDS: NA CHLORIDE 0.9% 250 ML IV ONE (10:27)
[2024-10-04] MEDS: MINERAL OIL ENEMA 135 ML BTL PR PRN (15:52)
[2024-10-04] MEDS: CYCLOBENZAPRINE 10 MG TAB PO PRN (18:19)
[2024-10-05] MEDS: BISACODYL 10 MG RECTAL SUPP PR ONE (04:20)
[2024-10-05 04:44] LABS: Sqamous Epithelial None Seen /HPF (None Seen); Urine Micro Reflex YN NO BILL MICROSCOPIC
[2024-10-05 04:52] LABS: Absolute Lymphocytes (CBC) 0.3 K/uL (0.7-4.9); Hematocrit 34.8 % (36.0-45.0); Hemoglobin 11.6 g/dL (12.0-15.0); MCH 29.6 pg (27.0-35.0); MCHC 33.4 g/dL (32.0-36.0); MCV 88.5 fL (80-100); MPV 7.4 fL (7.6-11.3); Nucleated RBC Absolute Count 0.0 (0-0); Nucleated Red Blood Cells % 0.1 % (0-0); RBC Red Blood Cell Count 3.93 M/uL (3.86-4.86); White Blood Count 4.40 thou/uL (4.3-10.9)
[2024-10-05 05:01] LABS: ALT/SGPT 25.0 U/L (13-56); AST/SGOT 35.0 U/L (15-37); Albumin 2.8 g/dL (3.4-5.0); Albumin/Globulin Ratio 0.8 (1.1-1.8); Alkaline Phosphatase 233.0 U/L (45-117); Anion Gap 6.4 mEq/L (5.0-15.0); BUN Blood Urea Nitrogen 84.0 mg/dL (7-18); Globulin 3.5 g/dL (2.3-3.5); Glucose Level 96.0 mg/dL (74-106); Magnesium 2.7 mg/dL (1.6-2.4); NT PRO-BNP 18162.0 pg/mL (<450); Potassium 4.4 mEq/L (3.5-5.1); Uric Acid 8.7 mg/dL (2.6-6.0)
[2024-10-05 05:15] LABS: MA/CREAT RATIO ND (< 30.0); UR CREAT 48.0 mg/dL (20-320); UR MICROALBUMIN < 0.5 mg/dL (< 1.9); UR PROTEIN 11.0 mg/dL (<11.9)
[2024-10-05] MEDS: DOCUSATE NA 100 MG CAP PO SCH (07:52)
--- NOTE | 2024-10-05 09:34 | P.PN ---
Date of Service: 10/05/24 Subjective Patient is clinically doing better. Patient clinical symptoms are improving. Continue working with physical therapy. Patient with generalized weakness and requiring a lot of verbal cues. Patient will will benefit from halfway facility placement. Physical Examination - Vital Signs Reviewed - Physical Exam General: Alert, In no apparent distress, Oriented x2-3 Respiratory: Clear to auscultation bilaterally, Normal air movement Cardiovascular: Regular rate/rhythm, Normal S1 S2, No murmurs Gastrointestinal: Normal bowel sounds, Soft and benign, Non-distended, No tenderness Musculoskeletal: No clubbing, No swelling, No tenderness Integumentary: No rashes Neurological: No focal deficits Assessment & Plan - Problems (Diagnosis) (1) CKD (chronic kidney disease) stage 3, GFR 30-59 ml/min Current Visit: Yes Status: Acute (2) Atherosclerotic vascular disease Current Visit: Yes Status: Acute (3) Status post femorofemoral bypass surgery Current Visit: Yes Status: Acute (4) Cirrhosis Current Visit: Yes Status: Acute - Plan Continue with plan of care as mentioned below: 1. Patient with generalized weakness with shortness of breath and acute CHF exacerbation; continue with diuresing. Continue monitoring renal function while we diurese the patient. Patient is recent echocardiogram with an EF of 35 to 40%. Continue with cardiac meds and outpatient cardiology follow-up. Will consult cardiology for further evaluation. Patient with atherosclerotic disease in dilated cardiomyopathy. 2. Chronic kidney disease stage III; renal function better today. Continue diuresing and monitoring renal function closely. Appreciate nephrology input 3. Patient with atherosclerotic vascular disease; patient with history of femorofemoral bypass surgery and patient with multiple areas of atherosclerotic lesions diffusely. Patient also with ischemic cardiomyopathy. Patient will continue with antiplatelet therapy and statin therapy. No aggressive intervention at this time 4. Patient with history of cirrhosis with gastric varices. Will continue monitoring LFTs and supportive care. Continue with Lasix and Aldactone 5. GI DVT prophylaxis Discharge Plan: [facility] Plan to discharge in: Greater than 2 days - Advance Directives Does patient have a Living Will: No Does patient have a Durable POA for Healthcare: No - Code Status/Comfort Care Code Status Assessed: Yes Code Status: Full Code Critical Care: No Time Spent Managing PTS Care (In Minutes): 35
--- NOTE | 2024-10-05 10:02 | P.PN ---
Date of Service: 10/05/24 Vital Signs Temp Pulse Resp BP Pulse Ox 98 F 90 18 120/70 95 10/05/24 09:30 10/05/24 09:30 10/05/24 09:30 10/05/24 09:30 10/05/24 09:30 Medications Acetaminophen (Acetaminophen 325 Mg Tablet) 650 mg PO Q4HP PRN PRN Reason: Pain scale 2-4 (Mild) Bisacodyl (Bisacodyl 10 Mg Rectal Supp) 10 mg OR DAILY PRN PRN Reason: CONSTIPATION Cyclobenzaprine HCl (Cyclobenzaprine 10 Mg Tab) 10 mg PO BIDP PRN PRN Reason: MUSCLE SPASMS Last Admin: 10/04/24 18:19 Dose: 10 mg Docusate Sodium (Docusate Na 100 Mg Cap) 100 mg PO QID TA Last Admin: 10/05/24 07:52 Dose: 100 mg Heparin Sodium (Porcine) (Heparin 5000 Unit/Ml 1 Ml Vial) 5,000 unit SQ Q8HR TA Last Admin: 10/05/24 07:52 Dose: 5,000 unit Mineral Oil (Mineral Oil Enema 135 Ml Btl) 133 ml OR DAILY PRN PRN Reason: CONSTIPATION Last Admin: 10/04/24 15:52 Dose: 133 ml Morphine Sulfate (Morphine 2 Mg/Ml Syr) 2 mg IV Q6H PRN PRN Reason: Pain scale 8-10 (Severe) Last Admin: 10/05/24 07:53 Dose: 2 mg Ondansetron HCl (Ondansetron 4 Mg/2 Ml Vial) 4 mg IV Q6HP PRN PRN Reason: NAUSEA / VOMITING Last Admin: 10/04/24 01:15 Dose: 4 mg Assessment/ Plan: Nephrology Progress Note No Dyspnea No Chest Pain No Acute Events Overnight Diffuse persistent pain worse with movement Vital Signs, Medications, Blood Work, and Imaging reviewed in the chart General: In no apparent distress, Oriented x3, Cooperative HEENT: Atraumatic Neck: Supple Respiratory: Clear to auscultation bilaterally, Normal air movement Cardiovascular: Regular rate/rhythm, Edema Gastrointestinal: No guarding, Distended Musculoskeletal: No clubbing, No contractures Integumentary: No rashes, No cyanosis Neurological: Normal speech Laboratory Data (last 24 hrs) 10/03/24 10/03/24 19:46 19:46 WBC 3.50 L Hgb 12.8 Hct 39.2 Plt Count 165 Sodium 134 L Potassium 3.9 BUN 75 H Creatinine 1.74 H Glucose 124 H Total Bilirubin 1.0 AST 32 ALT 26 Alkaline Phosphatase 265 H Lipase 32 Imagings Data: EXAMINATION: CT ABDOMEN AND PELVIS WITHOUT CONTRAST CLINICAL INDICATION: Abdominal pain TECHNIQUE: CT abdomen and pelvis was performed, as per department protocol. IV contrast and oral was not administered.Axial, sagittal and coronal reconstructions were obtained. One or more of the following dose reduction techniques were used: Automated exposure control, adjustment of the mA and/or kV according to the patient size, and/or iterative reconstruction. Unless otherwise specified, incidental findings do not require dedicated imaging follow-up. [id number]. COMPARISON: No prior exam. FINDINGS: The lack of intravenous and oral contrast limits evaluation of solid organs, vessels and bowel. 1.5 cm low-density area upper aspect of the spleen. Spleen measures 14 cm. Liver, pancreas, adrenals and left kidney grossly normal. Small right kidney. Large amount of stool present throughout the colon. No evidence of diverticulitis. Hysterectomy. No adnexal mass. Ventral hernia repair. A by femoral graft is present within the anterior subcutaneous fat of the pelvis. Right iliac stent present. Aorto biiliac stent. Diffuse edema within the subcutaneous tissues. No evidence of diverticulitis IMPRESSION: Large amount stool throughout the colon without obstruction Mild splenomegaly. 1.5 cm low-density area within the spleen. Represent a lesion or artifact. Nonemergent splenic ultrasound recommended. Conclusions/Impression: Stage I WILLIAMS likely multifactorial CKD IIIb -No NSAIDs Hyponatremia -Improved HTN with CKD/ CHF -Hold antihypertensives at this time Systolic Diastolic CHF, chronic Moderate Pulmonary HTN Moderate MR -Low sodium diet Hypoalbuminemia -Start Nepro Anemia in chronic illness -Monitor H&H Gout -Monitor Uric Acid Slow Transit Constipation -Continue Colace -Mineral Oil Enema prn Hospitalist note reviewed
[2024-10-05] MEDS: NEPRO SHAKE 237 ML CAN PO SCH (14:14)
[2024-10-05] MEDS: ACETAMINOPHEN 325 MG TABLET PO PRN (22:07)
[2024-10-06 00:02] VITALS: BMI 18.7
[2024-10-06 05:24] LABS: Calcium Oxalate Crystals- Ur Few /HPF (None Seen); Sqamous Epithelial None Seen /HPF (None Seen); Urine Micro Reflex YN NO BILL MICROSCOPIC
[2024-10-06 05:43] LABS: MA/CREAT RATIO 69.8 (< 30.0); UR CREAT 53.0 mg/dL (20-320); UR MICROALBUMIN 3.7 mg/dL (< 1.9); UR PROTEIN 20.3 mg/dL (<11.9)
[2024-10-06 12:07] LABS: Absolute Lymphocytes (CBC) 0.4 K/uL (0.7-4.9); Hematocrit 36.7 % (36.0-45.0); Hemoglobin 11.7 g/dL (12.0-15.0); MCH 28.8 pg (27.0-35.0); MCHC 32.0 g/dL (32.0-36.0); MCV 90.1 fL (80-100); MPV 7.3 fL (7.6-11.3); Nucleated RBC Absolute Count 0.0 (0-0); Nucleated Red Blood Cells % 0.1 % (0-0); Percent Reticulocyte Count 2.21 % (0.4-2.05); RBC Red Blood Cell Count 4.07 M/uL (3.86-4.86); White Blood Count 5.00 thou/uL (4.3-10.9)
[2024-10-06 12:16] LABS: PT Prothrombin Time 13.7 SECONDS (10-13.0); PTT, Activated Partial Thromb 27.3 SECONDS (27.2-37.4); Protime INR 1.22
[2024-10-06 12:47] LABS: ALT/SGPT 26.0 U/L (13-56); AST/SGOT 37.0 U/L (15-37); Albumin 2.9 g/dL (3.4-5.0); Albumin/Globulin Ratio 0.8 (1.1-1.8); Alkaline Phosphatase 210.0 U/L (45-117); Anion Gap 5.2 mEq/L (5.0-15.0); BUN Blood Urea Nitrogen 74.0 mg/dL (7-18); Globulin 3.7 g/dL (2.3-3.5); Glucose Level 109.0 mg/dL (74-106); Iron 37.0 ug/dL (50-170); Magnesium 2.8 mg/dL (1.6-2.4); NT PRO-BNP 19395.0 pg/mL (<450); Potassium 4.2 mEq/L (3.5-5.1); Troponin High Sensitivity 53.6 pg/mL (<58.9)
--- NOTE | 2024-10-06 21:41 | P.PN ---
Date of Service: 10/06/24 Vital Signs Temp Pulse Resp BP Pulse Ox 97.7 F 84 16 139/72 96 10/06/24 20:00 10/06/24 20:00 10/06/24 20:38 10/06/24 20:00 10/06/24 20:38 Medications Acetaminophen (Acetaminophen 325 Mg Tablet) 650 mg PO Q4HP PRN PRN Reason: Pain scale 2-4 (Mild) Last Admin: 10/05/24 22:07 Dose: 650 mg Bisacodyl (Bisacodyl 10 Mg Rectal Supp) 10 mg MO DAILY PRN PRN Reason: CONSTIPATION Cyclobenzaprine HCl (Cyclobenzaprine 10 Mg Tab) 10 mg PO BIDP PRN PRN Reason: MUSCLE SPASMS Last Admin: 10/06/24 11:40 Dose: 10 mg Dexamethasone (Dexamethasone 4 Mg Tab) 2 mg PO BID [facility] Last Admin: 10/06/24 20:37 Dose: 2 mg Docusate Sodium (Docusate Na 100 Mg Cap) 100 mg PO QID [facility] Last Admin: 10/06/24 20:38 Dose: 100 mg Enteral Nutritional Formula (Nepro Shake 237 Ml Can) 240 ml PO TID [facility] Last Admin: 10/06/24 20:49 Dose: 240 ml Heparin Sodium (Porcine) (Heparin 5000 Unit/Ml 1 Ml Vial) 5,000 unit SQ Q8HR [facility] Last Admin: 10/06/24 16:10 Dose: 5,000 unit Mineral Oil (Mineral Oil Enema 135 Ml Btl) 133 ml MO DAILY PRN PRN Reason: CONSTIPATION Last Admin: 10/04/24 15:52 Dose: 133 ml Morphine Sulfate (Morphine 2 Mg/Ml Syr) 2 mg IV Q6H PRN PRN Reason: Pain scale 8-10 (Severe) Last Admin: 10/06/24 20:38 Dose: 2 mg Ondansetron HCl (Ondansetron 4 Mg/2 Ml Vial) 4 mg IV Q6HP PRN PRN Reason: NAUSEA / VOMITING Last Admin: 10/04/24 01:15 Dose: 4 mg Assessment/ Plan: Nephrology Progress Note No Dyspnea No Chest Pain No Acute Events Overnight No BM for several days Vital Signs, Medications, Blood Work, and Imaging reviewed in the chart General: In no apparent distress, Oriented x3, Cooperative HEENT: Atraumatic Neck: Supple Respiratory: Clear to auscultation bilaterally, Normal air movement Cardiovascular: Regular rate/rhythm, Edema Gastrointestinal: No guarding, Distended Musculoskeletal: No clubbing, No contractures Integumentary: No rashes, No cyanosis Neurological: Normal speech Laboratory Data (last 24 hrs) 10/03/24 10/03/24 19:46 19:46 WBC 3.50 L Hgb 12.8 Hct 39.2 Plt Count 165 Sodium 134 L Potassium 3.9 BUN 75 H Creatinine 1.74 H Glucose 124 H Total Bilirubin 1.0 AST 32 ALT 26 Alkaline Phosphatase 265 H Lipase 32 Imagings Data: EXAMINATION: CT ABDOMEN AND PELVIS WITHOUT CONTRAST CLINICAL INDICATION: Abdominal pain TECHNIQUE: CT abdomen and pelvis was performed, as per department protocol. IV contrast and oral was not administered.Axial, sagittal and coronal reconstructions were obtained. One or more of the following dose reduction techniques were used: Automated exposure control, adjustment of the mA and/or kV according to the patient size, and/or iterative reconstruction. Unless otherwise specified, incidental findings do not require dedicated imaging follow-up. [id number]. COMPARISON: No prior exam. FINDINGS: The lack of intravenous and oral contrast limits evaluation of solid organs, vessels and bowel. 1.5 cm low-density area upper aspect of the spleen. Spleen measures 14 cm. Liver, pancreas, adrenals and left kidney grossly normal. Small right kidney. Large amount of stool present throughout the colon. No evidence of diverticuli tis. Hysterectomy. No adnexal mass. Ventral hernia repair. A by femoral graft is present within the anterior subcutaneous fat of the pelvis. Right iliac stent present. Aorto biiliac stent. Diffuse edema within the subcutaneous tissues. No evidence of diverticulitis IMPRESSION: Large amount stool throughout the colon without obstruction Mild splenomegaly. 1.5 cm low-density area within the spleen. Represent a lesion or artifact. Nonemergent splenic ultrasound recommended. Conclusions/Impression: Stage I WILLIAMS likely multifactorial CKD IIIb -No NSAIDs Hyponatremia -Improved HTN with CKD/ CHF -Start Metoprolol 12.5 bid Systolic Diastolic CHF, chronic Peripheral Edema Moderate Pulmonary HTN Moderate MR -Low sodium diet -Start Lasix and Spironolactone Hypoalbuminemia -Continue Nepro Anemia in chronic illness -Monitor H&H Gout -Monitor Uric Acid Slow Transit Constipation -Continue Colace -Mineral Oil Enema prn Hospitalist note reviewed
--- NOTE | 2024-10-07 01:21 | P.PN ---
Date of Service: 10/06/24 Subjective Patient continues to have back pain. Otherwise clinically patient is doing better. Renal function is stabilized. Working with physical therapy. Patient got out of bed and ambulated a few steps. Working on discharge planning and discharging to [facility] once patient is accepted. Physical Examination - Vital Signs Reviewed - Physical Exam General: Alert, In no apparent distress, Oriented x2-3 Respiratory: Clear to auscultation bilaterally, Normal air movement Cardiovascular: Regular rate/rhythm, Normal S1 S2, No murmurs Gastrointestinal: Normal bowel sounds, Soft and benign, Non-distended, No tenderness Musculoskeletal: No clubbing, No swelling, No tenderness; kyphosis Integumentary: No rashes Neurological: No focal deficits; generalized weakness with kyphosis Assessment & Plan - Problems (Diagnosis) (1) CKD (chronic kidney disease) stage 3, GFR 30-59 ml/min Current Visit: Yes Status: Acute (2) Atherosclerotic vascular disease Current Visit: Yes Status: Acute (3) Status post femorofemoral bypass surgery Current Visit: Yes Status: Acute (4) Cirrhosis Current Visit: Yes Status: Acute - Plan Continue with plan of care as mentioned below: 1. Patient with generalized weakness with shortness of breath and acute CHF exacerbation; continue with diuresing. Continue monitoring renal function while we diurese the patient. patient with heart failure with reduced ejection fraction with an EF of 35-40%. Patient is appearing to be compensated at this time. Ambulated with physical therapy. Anticipating discharge once patient is accepted to [facility]. Continue with goal-directed medical therapy at discharge. 2. Chronic kidney disease stage III; renal function better today. Continue diuresing and monitoring renal function closely. Appreciate nephrology input . Patient will benefit from [facility]. 3. Patient with atherosclerotic vascular disease; patient with history of femorofemoral bypass surgery and patient with multiple areas of atherosclerotic lesions diffusely. Patient also with ischemic cardiomyopathy. Patient will continue with antiplatelet therapy and statin therapy. No aggressive intervention at this time 4. Patient with history of cirrhosis with gastric varices. Will continue monitoring LFTs and supportive care. Continue with Lasix and Aldactone 5. GI DVT prophylaxis Discharge Plan: [facility] Plan to discharge in: Greater than 2 days - Advance Directives Does patient have a Living Will: No Does patient have a Durable POA for Healthcare: No - Code Status/Comfort Care Code Status Assessed: Yes Code Status: Full Code Critical Care: No Time Spent Managing PTS Care (In Minutes): 30
[2024-10-07] MEDS ORDERED: FENTANYL CITR 100 MCG/2 ML IV PRN (01:22)
[2024-10-07] MEDS: METOPROLOL TAR 25 MG TAB PO SCH (04:54)
[2024-10-07 07:11] LABS: Albumin 2.7 g/dL (3.4-5.0); Anion Gap 7.6 mEq/L (5.0-15.0); BUN Blood Urea Nitrogen 64.0 mg/dL (7-18); Glucose Level 187.0 mg/dL (74-106); Potassium 4.6 mEq/L (3.5-5.1); Uric Acid 8.2 mg/dL (2.6-6.0)
[2024-10-07] MEDS: SPIRONOLACTONE 25 MG TABLET PO SCH (09:12)
[2024-10-07] MEDS: MORPHINE 4 MG/ML SYR IV PRN (09:12)
[2024-10-07] MEDS: FUROSEMIDE 20 MG TABLET PO SCH (09:12)
--- NOTE | 2024-10-07 10:31 | P.PN ---
Date of Service: 10/07/24 Subjective: Assuming care today. Hospitalist note reviewed continues with left-sided pain but not worse went over new medication she is now taking states she has an upcoming GI appointment scheduled to further discuss abd pain vitals stable pending SNF auth Physical Exam: Gen: Alert, NAD, Orientedx3 CV: Regular rate and rhythm, no edema Pulm: Nonlabored respirations on room air, clear bilaterally Abdomen: Soft, nontender, nondistended MSK: no swelling, no tenderness, kyphosis Neuro: Normal strength, normal affect, blind in both eyes Problem List: Acute on chronic combined systolic/diastolic CHF exacerbation (35-40% EF) Chronic back pain Generalized weakness WILLIAMS on CKD3 Constipation Hypertension Hx of femorofemoral bypass Hx of cirrhosis / gastric varices Hx of gout Acute on chronic combined systolic/diastolic CHF exacerbation (35-40% EF) Chronic back pain Generalized weakness Diuresing well Contineue oral lasix 205 mg Oral spironolactone 25 mg added per nephro Continue PT working on SNF. Pending Auth pain control WILLIAMS on CKD3 Nephrology is following Continue to monitor renal function Monitor and replete electrolytes as needed avoid NSAIDs on oral lasix 20 mg Spironolactone started today per nephro Constipation colace QID dulcolax suppository PRN Fleet enema PRN Hypertension start oral metoprolol 12.5 mg BID per nephro Hx of femorofemoral bypass Hx of cirrhosis / gastric varices Hx of gout confirm home meds, restart as appropriate VTE: heparin sq Code: full Dispo: SNF - pending auth Time spent on the encounter, including patient evaluation, history taking, physical exam, medical decision making, coordination of care, and documentation, was 35 minutes. Time includes direct [id number] interaction with the patient and indirect time spent reviewing records, ordering tests, and discussing the care plan.
[2024-10-08 07:50] LABS: Absolute Lymphocytes (CBC) 0.5 K/uL (0.7-4.9); Hematocrit 36.1 % (36.0-45.0); Hemoglobin 11.6 g/dL (12.0-15.0); MCH 29.1 pg (27.0-35.0); MCHC 32.2 g/dL (32.0-36.0); MCV 90.4 fL (80-100); MPV 7.6 fL (7.6-11.3); Nucleated RBC Absolute Count 0.0 (0-0); Nucleated Red Blood Cells % 0.2 % (0-0); RBC Red Blood Cell Count 4.00 M/uL (3.86-4.86); White Blood Count 5.30 thou/uL (4.3-10.9)
[2024-10-08 08:09] LABS: ALT/SGPT 39.0 U/L (13-56); AST/SGOT 51.0 U/L (15-37); Albumin 2.9 g/dL (3.4-5.0); Albumin/Globulin Ratio 0.9 (1.1-1.8); Alkaline Phosphatase 232.0 U/L (45-117); Anion Gap 7.4 mEq/L (5.0-15.0); BUN Blood Urea Nitrogen 67.0 mg/dL (7-18); Globulin 3.3 g/dL (2.3-3.5); Glucose Level 120.0 mg/dL (74-106); Potassium 4.4 mEq/L (3.5-5.1)
[2024-10-08] MEDS: BISACODYL 10 MG RECTAL SUPP PR PRN (09:17)
--- NOTE | 2024-10-08 10:51 | P.PN ---
Date of Service: 10/08/24 Subjective: Continues to endorse back pain over the left side Denies any fevers, chills, nausea, vomiting pending SNF auth Physical Exam: Gen: Alert, NAD, Orientedx3 CV: Regular rate and rhythm, no edema Pulm: Nonlabored respirations on room air, clear bilaterally Abdomen: Soft, nontender, nondistended MSK: no swelling, no tenderness, kyphosis Neuro: Normal strength, normal affect, blind in both eyes Problem List: Acute on chronic combined systolic/diastolic CHF exacerbation (35-40% EF) Chronic back pain Generalized weakness WILLIAMS on CKD3 Constipation Hypertension Hx of femorofemoral bypass Hx of cirrhosis / gastric varices Hx of gout Acute on chronic combined systolic/diastolic CHF exacerbation (35-40% EF) Chronic back pain Generalized weakness Abdominal ultrasound pending Pelvis x-rays pending Diuresing well Contineue oral lasix 205 mg Oral spironolactone 25 mg added per nephro Continue PT working on SNF. Pending Auth pain control with morphine and [place] WILLIAMS on CKD3 Nephrology is following Continue to monitor renal function Monitor and replete electrolytes as needed avoid NSAIDs on oral lasix 20 mg Spironolactone started today per nephro Constipation colace QID dulcolax suppository PRN Fleet enema PRN Hypertension start oral metoprolol 12.5 mg BID per nephro Hx of femorofemoral bypass Hx of cirrhosis / gastric varices Hx of gout confirm home meds, restart as appropriate VTE: heparin sq Code: full Dispo: SNF - pending auth
[2024-10-08 11:03] LABS: PCO2, Venous Blood Gas 49.0 mmHg (41-51); PH, Venous Blood Gas 7.46 (7.32-7.42)
[2024-10-08 11:04] LABS: Base Excess, VBG 11.0 mmol/L (-2.0-3.0); Blood Gas Inspired Oxygen, VBG 100.0 %; HCO3, Venous Blood Gas 34.8 mmol/L (21.0-29.0); O2 Saturation, VBG 99.9 % (40.0-70.0); PO2, Venous Blood Gas 283.0 mmHg (25-40)
--- NOTE | 2024-10-08 11:44 | RAD REPORT ---
Abdomen Exam Limited: 10/08/2024 11:00 AM CLINICAL HISTORY: evaluate splenic lesion STUDY: Limited right upper quadrant ultrasound of abdomen. COMPARISON: 10/03/24 FINDINGS: Mild splenomegaly. Spleen measures 13.5 cm in long axis. Anechoic splenic lesion measuring 1.4 cm is consistent with a splenic cyst. No vascular flow. IMPRESSION: Mild splenomegaly. Benign splenic cyst.
[2024-10-08] MEDS: HYDROCODONE/APAP 5/325 MG TAB PO PRN (11:48)
--- NOTE | 2024-10-08 13:42 | RAD REPORT ---
EXAMINATION: Hip Bilateral With Pelvis VIEWS: Two views CLINICAL INDICATION: Female, 79 years old. left hip pain COMPARISON: No prior exam. IMPRESSION: No pelvic or hip fracture identified. Evaluation is limited due to degree of osteopenia. The hips are located. Vascular stents noted. Prior ventral hernia repair.
[2024-10-08 23:05] VITALS: O2SAT 99
[2024-10-09] MEDS: FUROSEMIDE 20 MG TABLET PO SCH (08:05)
[2024-10-09 08:06] VITALS: TEMP 97.6
--- NOTE | 2024-10-09 13:07 | P.DS ---
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 Patient states prior to arrival at [facility] ER today, she went to [facility] in the morning complaining of right-sided back pain, lower abdominal pain, states she was evaluated treated and discharged home with prescription of tramadol and muscle relaxant. Patient states she went home and took the medications as prescribed but still had abdominal pain and right side lower back pain, which then prompted her to report to the ER. Patient had CT abdomen and pelvis without contrast done in ER, impression; (1) large amount stool throughout the colon without obstruction. Patient bowel sounds present all 4 quadrants, abdomen slightly distended, soft on palpation, no rebound tenderness. No sign of respiratory distress. Patient states she started having muscle spasm for the past 4 weeks with associated back pain, and abdominal pain, with no nausea or vomiting. She also states that her bilateral lower extremities edema is progressively worsening, and on admission assessment, patient bilateral lower extremities with 1+ pitting. Patient states she have made multiple visits to [facility] ER with abdominal pain and back pain, but always discharged home from the ER. Patient BUN 75, creatinine 1.74. Patient denies of any history of renal disease. No presenting signs or symptoms of CHF exacerbation at this time. Hospital Course: Physical Exam: Gen: Alert, NAD, Orientedx3 CV: Regular rate and rhythm, no edema Pulm: Nonlabored respirations on room air, clear bilaterally Abdomen: Soft, nontender, nondistended MSK: no swelling, no tenderness, kyphosis Neuro: Normal strength, normal affect, blind in both eyes Problem List: Acute on chronic combined systolic/diastolic CHF exacerbation (35-40% EF) Chronic back pain Generalized weakness WILLIAMS on CKD3 Constipation Hypertension Hx of femorofemoral bypass Hx of cirrhosis / gastric varices Hx of gout Acute on chronic combined systolic/diastolic CHF exacerbation (35-40% EF) Chronic back pain Generalized weakness Abdominal ultrasound with benign splenic cyst and mild splenomegaly Pelvis x-rays within normal limit Diuresing well Contineue oral lasix 205 mg Oral spironolactone 25 mg added per nephro Continue PT working on SNF. Pending Auth pain control with morphine and [place] WILLIAMS on CKD3 Nephrology is following Continue to monitor renal function Monitor and replete electrolytes as needed avoid NSAIDs on oral lasix 20 mg Spironolactone started today per nephro Constipation colace QID dulcolax suppository PRN Fleet enema PRN Hypertension start oral metoprolol 12.5 mg BID per nephro Hx of femorofemoral bypass Hx of cirrhosis / gastric varices Hx of gout confirm home meds, restart as appropriate VTE: heparin sq Code: full Dispo: Discharge back to halfway today Vital Signs/Physical Exam: Temp Pulse Resp BP Pulse Ox 97.6 F 81 17 123/53 L 99 10/09/24 08:00 10/09/24 08:05 10/09/24 08:06 10/09/24 08:05 10/09/24 08:06 Laboratory Data at Discharge: WBC 5.30 thou/uL (4.3-10.9) 10/08/24 07:41 Hgb 11.6 g/dL (12.0-15.0) L 10/08/24 07:41 Hct 36.1 % (36.0-45.0) 10/08/24 07:41 Plt Count 133 thou/uL (152-406) L 10/08/24 07:41 PT 13.7 SECONDS (10-13.0) H 10/06/24 11:54 INR 1.22 10/06/24 11:54 APTT 27.3 SECONDS (27.2-37.4) 10/06/24 11:54 Sodium 139 mEq/L (136-145) 10/08/24 07:41 Potassium 4.4 mEq/L (3.5-5.1) 10/08/24 07:41 BUN 67 mg/dL (7-18) H 10/08/24 07:41 Creatinine 1.18 mg/dL (0.55-1.02) H 10/08/24 07:41 Glucose 120 mg/dL (74-106) H 10/08/24 07:41 Uric Acid 8.2 mg/dL (2.6-6.0) H 10/07/24 06:17 Phosphorus 2.8 mg/dL (2.5-4.9) 10/07/24 06:17 Magnesium 2.8 mg/dL (1.6-2.4) H 10/06/24 11:54 Total Bilirubin 0.6 mg/dL (0.2-1.0) 10/08/24 07:41 AST 51 U/L (15-37) H 10/08/24 07:41 ALT 39 U/L (13-56) 10/08/24 07:41 Alkaline Phosphatase 232 U/L (45-117) H 10/08/24 07:41 Lipase 32 U/L (13-75) 10/03/24 19:46 Home Medications: Clopidogrel Bisulfate [Plavix] 75 mg PO DAILY 09/14/11 Cyclobenzaprine [Flexeril*] 10 mg PO Q6HP PRN 09/14/11 Enalapril Maleate 5 mg PO DAILY 09/14/11 Furosemide [Lasix*] 10 mg PO DAILY 30 Days #30 tab 10/09/24 Metoprolol Tartrate [Lopressor*] 12.5 mg PO BID 6AM 6PM 30 Days #60 tab 10/09/24 Nepro Shake [Nepro*] 240 ml PO TID 30 Days #90 can 10/09/24 Spironolactone [Aldactone*] 25 mg PO DAILY 30 Days #30 tab 10/09/24 New Medications: Spironolactone [Aldactone*] 25 mg PO DAILY 30 Days #30 tab Furosemide [Lasix*] 10 mg PO DAILY 30 Days #30 tab Metoprolol Tartrate [Lopressor*] 12.5 mg PO BID 6AM 6PM 30 Days #60 tab Nepro Shake [Nepro*] 240 ml PO TID 30 Days #90 can Followup: Jason Mock MD [Primary Care Provider] -
[2024-10-09 13:22] VITALS: BP 107/48
--- NOTE | 2024-10-09 13:37 | P.PN ---
Date of Service: 10/09/24 Vital Signs Temp Pulse Resp BP Pulse Ox 97.6 F 80 16 107/48 L 98 10/09/24 12:00 10/09/24 12:00 10/09/24 12:00 10/09/24 12:00 10/09/24 12:00 Medications Acetaminophen (Acetaminophen 325 Mg Tablet) 650 mg PO Q4HP PRN PRN Reason: Pain scale 2-4 (Mild) Last Admin: 10/07/24 20:13 Dose: 650 mg Hydrocodone Bitart/Acetaminophen (Hydrocodone/Apap 5/325 Mg Tab) 1 tab PO Q4H PRN PRN Reason: Pain scale 5-7 (Moderate) Last Admin: 10/09/24 12:24 Dose: 1 tab Bisacodyl (Bisacodyl 10 Mg Rectal Supp) 10 mg SD DAILY PRN PRN Reason: CONSTIPATION Last Admin: 10/08/24 09:17 Dose: 10 mg Cyclobenzaprine HCl (Cyclobenzaprine 10 Mg Tab) 10 mg PO BIDP PRN PRN Reason: MUSCLE SPASMS Last Admin: 10/08/24 09:16 Dose: 10 mg Docusate Sodium (Docusate Na 100 Mg Cap) 100 mg PO QID [facility] Last Admin: 10/09/24 12:24 Dose: 100 mg Enteral Nutritional Formula (Nepro Shake 237 Ml Can) 240 ml PO TID [facility] Last Admin: 10/09/24 08:07 Dose: 240 ml Furosemide (Furosemide 20 Mg Tablet) 10 mg PO DAILY [facility] Last Admin: 10/09/24 08:05 Dose: 10 mg Heparin Sodium (Porcine) (Heparin 5000 Unit/Ml 1 Ml Vial) 5,000 unit SQ Q8HR [facility] Last Admin: 10/09/24 08:06 Dose: 5,000 unit Metoprolol Tartrate (Metoprolol Tar 25 Mg Tab) 12.5 mg PO BID 6AM 6PM [facility] Last Admin: 10/09/24 06:20 Dose: 12.5 mg Mineral Oil (Mineral Oil Enema 135 Ml Btl) 133 ml SD DAILY PRN PRN Reason: CONSTIPATION Last Admin: 10/04/24 15:52 Dose: 133 ml Morphine Sulfate (Morphine 4 Mg/Ml Syr) 2 mg IV Q6H PRN PRN Reason: Pain scale 8-10 (Severe) Last Admin: 10/08/24 22:12 Dose: 2 mg Ondansetron HCl (Ondansetron 4 Mg/2 Ml Vial) 4 mg IV Q6HP PRN PRN Reason: NAUSEA / VOMITING Last Admin: 10/04/24 01:15 Dose: 4 mg Spironolactone (Spironolactone 25 Mg Tablet) 25 mg PO DAILY TA Last Admin: 10/09/24 08:05 Dose: 25 mg Assessment/ Plan: Nephrology Progress Note No Dyspnea No Chest Pain No Acute Events Overnight Persistent pain Vital Signs, Medications, Blood Work, and Imaging reviewed in the chart General: In no apparent distress, Oriented x3, Cooperative HEENT: Atraumatic Neck: Supple Respiratory: Clear to auscultation bilaterally, Normal air movement Cardiovascular: Regular rate/rhythm, Edema Gastrointestinal: No guarding, Distended Musculoskeletal: No clubbing, No contractures Integumentary: No rashes, No cyanosis Neurological: Normal speech Laboratory Data (last 24 hrs) 10/03/24 10/03/24 19:46 19:46 WBC 3.50 L Hgb 12.8 Hct 39.2 Plt Count 165 Sodium 134 L Potassium 3.9 BUN 75 H Creatinine 1.74 H Glucose 124 H Total Bilirubin 1.0 AST 32 ALT 26 Alkaline Phosphatase 265 H Lipase 32 Imagings Data: EXAMINATION: CT ABDOMEN AND PELVIS WITHOUT CONTRAST CLINICAL INDICATION: Abdominal pain TECHNIQUE: CT abdomen and pelvis was performed, as per department protocol. IV contrast and oral was not administered.Axial, sagittal and coronal reconstructions were obtained. One or more of the following dose reduction techniques were used: Automated exposure control, adjustment of the mA and/or kV according to the patient size, and/or iterative reconstruction. Unless otherwise specified, incidental findings do not require dedicated imaging follow-up. [id number]. COMPARISON: No prior exam. FINDINGS: The lack of intravenous and oral contrast limits evaluation of solid organs, vessels and bowel. 1.5 cm low-density area upper aspect of the spleen. Spleen measures 14 cm. Liver, pancreas, adrenals and left kidney grossly normal. Small right kidney. Large amount of stool present throughout the colon. No evidence of diverticulitis. Hysterectomy. No adnexal mass. Ventral hernia repair. A by femoral graft is present within the anterior subcutaneous fat of the pelvis. Right iliac stent present. Aorto biiliac stent. Diffuse edema within the subcutaneous tissues. No evidence of diverticulitis IMPRESSION: Large amount stool throughout the colon without obstruction Mild splenomegaly. 1.5 cm low-density area within the spleen. Represent a lesion or artifact. Nonemergent splenic ultrasound recommended. Conclusions/Impression: Stage I WILLIAMS likely multifactorial CKD IIIb -No NSAIDs Hyponatremia -Improved HTN with CKD/ CHF -Continue Metoprolol 12.5 bid Systolic Diastolic CHF, chronic Peripheral Edema Moderate Pulmonary HTN Moderate MR -Low sodium diet -Continue Lasix and Spironolactone Hypoalbuminemia -Continue Nepro Anemia in chronic illness -Monitor H&H Gout -Monitor Uric Acid Slow Transit Constipation -Continue Colace -Mineral Oil Enema prn Hospitalist note reviewed
== END 2024-10-09 16:21 | disposition home or self-care (01) | DRG 682 ==
LOC: ER 18:27 → ERHOLD 23:13 → 4TH 23:40 → OBSVTOIN 10-04 10:11
PROVIDERS: ADMIT Hospitalist; ATTEND Family Medicine
DX: N17.9 Acute kidney failure, unspecified (principal); I50.43 Acute on chronic combined systolic (congestive) and diastolic (congestive) heart failure; E87.1 Hypo-osmolality and hyponatremia; I13.0 Hypertensive heart and chronic kidney disease with heart failure and stage 1 through stage 4 chronic kidney disease, or unspecified chronic kidney disease; N18.30 Chronic kidney disease, stage 3 unspecified; D63.1 Anemia in chronic kidney disease; I48.91 Unspecified atrial fibrillation; M62.838 Other muscle spasm; K74.60 Unspecified cirrhosis of liver; I73.9 Peripheral vascular disease, unspecified; M10.9 Gout, unspecified; I35.0 Nonrheumatic aortic (valve) stenosis; I25.5 Ischemic cardiomyopathy; I27.20 Pulmonary hypertension, unspecified; K59.01 Slow transit constipation; I34.0 Nonrheumatic mitral (valve) insufficiency; E78.00 Pure hypercholesterolemia, unspecified; E88.09 Other disorders of plasma-protein metabolism, not elsewhere classified; I25.10 Atherosclerotic heart disease of native coronary artery without angina pectoris; F17.210 Nicotine dependence, cigarettes, uncomplicated; Z88.5 Allergy status to narcotic agent; Z95.0 Presence of cardiac pacemaker; Z60.2 Problems related to living alone; Z79.02 Long term (current) use of antithrombotics/antiplatelets; Z79.899 Other long term (current) drug therapy
CPT/HCPCS: 36415; 73521; 74176; 76705; 80053; 80069; 81001; 81003; 82043; 82140; 82570; 82607; 82803; 83540; 83605; 83690; 83735; 83880; 84100; 84156; 84484; 84550; 85025; 85044; 85610; 85730; 86140; 96374; 97110; 97161; 97530; 99284; G0378; J1100; J1644; J2270; J2405; J3010; J7030; J7050; J8540